=== PATIENT | female | born 1975 | race Caucasian/White ===

== ENCOUNTER 2021-11-04 10:18 | Outpatient (CLI) | payer OTHER, SELFPAY | END 2021-11-04 10:19 | disposition home or self-care (01) | LOC: NFLDREF 10:19 | PROVIDERS: Visit Provider Obstetrics & Gynecology | DX: Z01.419 Encounter for gynecological examination (general) (routine) without abnormal findings (principal); Z12.4 Encounter for screening for malignant neoplasm of cervix; Z11.3 Encounter for screening for infections with a predominantly sexual mode of transmission | CPT/HCPCS: 87624; 88175 ==

== ENCOUNTER 2022-01-30 07:06 | Outpatient (CLI) | payer OTHER, SELFPAY | END 2022-01-30 07:07 | disposition home or self-care (01) | LOC: OP CLINIC 07:07 | PROVIDERS: Visit Provider Surgery | DX: Z12.11 Encounter for screening for malignant neoplasm of colon (principal); K63.5 Polyp of colon; K57.30 Diverticulosis of large intestine without perforation or abscess without bleeding; Z83.71 Family history of colonic polyps | CPT/HCPCS: 45385; 88305; 99153; J2250; J3010 ==

== ENCOUNTER 2022-12-19 17:30 | Outpatient (CLI) | payer OTHER, SELFPAY | END 2022-12-19 17:31 | disposition home or self-care (01) | LOC: NFLDREF 17:31 | PROVIDERS: Visit Provider Registered Nurse | DX: Z01.419 Encounter for gynecological examination (general) (routine) without abnormal findings (principal); R63.5 Abnormal weight gain | CPT/HCPCS: 84443 ==

== ENCOUNTER 2023-04-13 15:00 | Outpatient (CLI) | payer BC, SELFPAY ==
--- NOTE | 2023-04-13 15:00 | MR_ITS ---
[facility] [address] [facility] [address] Phone:?[phone] Fax:?[phone] Referring Physician Information: Corey Bauman M.D. [address] [facility] [address] Phone:?[phone] Fax:?[phone] Patient:Taj De La Torre D.O.B:?1975 Sex:?Female Phone:?[phone] [facility] MRN:?[id number] Exam Date:?04/13/2023 EXAM: MR CERVICAL SPINE WITHOUT CONTRAST 1.5T CLINICAL INFORMATION: Cervical radiculopathy. TECHNICAL INFORMATION: T1, T2 FSE and STIR sagittal sections with T2 GRE/FSE axial sections at selected levels. COMPARISON IMAGES: MRI dated 11/06/2003. INTERPRETATION:?Neurologic structures:?Normal signal intensity within the cervical and upper thoracic cord. No Chiari malformation or syrinx, no intrinsic cord lesion and no intradural mass. Normal vertebral artery flow voids. Alignment:?Spondylosis with lordotic alignment of the cervical vertebrae. T1-2 and C7-T1: Normal intervertebral discs and facet joints. No stenosis or impingement. C6-7 and C5-6: Intervertebral discs unremarkable with normal dorsal disc margins, normal facet joints and no stenosis or impingement. C4-5: Mild disc degeneration a 1-2 mm left paracentral disc protrusion and mild left ventral cord flattening. Normal facet joints and patent neural foramina. C3-4 and C2-3: Intervertebral discs unremarkable with normal dorsal disc margins, mild facet arthropathy on the right at each level and no stenosis or impingement. Craniocervical junction:?No degenerative or erosive changes within the atlantoaxial or cervico-occipital joints. Osseous structures and paraspinous soft tissues:?Normal signal intensity with the vertebral marrow spaces. No fracture or avulsion. No osteolytic or destructive bone lesion. No prevertebral soft tissue swelling and no paraspinous soft tissue mass. CONCLUSION: 1. Mild C4-5 disc degeneration with a 1-2 mm left paracentral disc protrusion and mild left ventral cord flattening. 2. Mild facet arthropathy on the right at L3-4 and L2-3. 3. No cord abnormality, and no neoplasm, fracture or infection. 4. Comparison with 06/28/2007 shows that the disc protrusion on the left at C4-5 is new as is facet degeneration on the right at C3-4 and C2-3. Electronically signed on 04/14/2023 10:38:00 AM by Jeb Nicolas M.D.
--- OUTSIDE RECORDS SUMMARY | 2023-04-13 15:04 | XMS_ITS | Clinical Summary ---
Author Name Unknown Organization [facility] Address [place], [place] [address] Care Team Providers Care Director Of Brand Marketing Name Role Phone Gala Bowers NP Primary Care Provider [phone]- [phone] Allergies Active Allergy Reactions Criticality Noted Date Comments Cocamidopropyl Betaine Rash 02/27/2018 Red face Lactase Stomach Upset 02/27/2018 Intolerance Medications Medication Sig Dispensed Refills Start Date End Date Status dicloxacillin (DYNAPEN) 250 mg capsule Take 1 capsule by mouth 4 times daily before meals and at bedtime. 40 capsule 0 02/27/2018 Active medication order composer 0 02/27/2018 Active levonorgestrel intrauterine device (MIRENA) 20 mcg/24 hours (5 yrs) 52 mg IUD Inject 1 Device intrauterine one time for 1 dose. 1 Device 0 10/10/2019 Active cholecalciferol (VITAMIN D3) 2,000 unit capsule Take 1 capsule by mouth once daily. 0 10/10/2019 Active niacin 50 mg tablet Take 1 tablet by mouth once daily. 0 10/10/2019 Active zinc 50 mg tablet Take 1 Tablet (50 mg) by mouth once daily. 0 10/20/2021 Active magnesium sulfate in water 2 gram/50 mL (4 %) Inject 2 g intravenous. 0 10/20/2021 Active magnesium glycinate 100 mg magnesium cap Take by mouth. 0 Active Active Problems No known active problems Encounters Date Type Department Care Team Description 01/18/2023 2:00 PM CDT Telemedicine [facility] [address] [place] [address] Josie Blount, MS, [facility] [place]; Counseling (Cancer genetic counseling) 01/18/2023 Travel from Last 3 Months Family History Medical History Relation Name Comments Cancer-prostate Father Melanoma Father Cancer-breast Maternal Aunt Cancer-breast Mother Cancer-prostate Other Cancer-breast Paternal Aunt Cancer-colon No Family History Cancer-ovarian No Family History Cancer-pancreatic No Family History Relation Name Status Comments Father Maternal Aunt Mother Other Paternal Aunt Social History Tobacco Use Types Packs/Day Years Used Date Smoking Tobacco: Never Smokeless Tobacco: Never Alcohol Use Standard Drinks/Week Comments Yes 0 (1 standard drink = 0.6 oz pur e alcohol) social Social Connections Answer Date Recorded Frequency of Communication with Friends and Fami ly Not on file 04/01/2021 Financial Resource Strain Answer Date R ecorded Difficulty of Paying Living Expenses Not on file 04/01/2021 Difficulty of Paying Living Expenses Not on file 04/01/2021 Sex and Gender Information Value Date Recorded Sex Assigned at Not on file Gender Identity Not on file Sexual Orientation Not on file Obstetrics History Last Filed Vital Signs Vital Sign Reading Time Taken Comments Blood Pressure 126/76 10/20/2021 11:39 AM CDT Pulse 69 10/20/2022 10:23 AM CDT Temperature 36.2 ??C (97.2 ??F) 10/20/2022 10:23 AM C DT Respiratory Rate 16 10/20/2022 10:23 AM CDT Oxygen Saturation - - Inhaled Oxygen Concentration - - Weight 90.3 kg (199 lb) 10/20/2022 10:23 AM CDT Height 182.9 cm (6') 10/20/2022 10:23 AM CDT Body Mass Index 26.99 10/20/2022 10:23 AM CDT Plan of Treatment Upcoming Encounters Date Type Department Care Team (Late st Contact Info) Description 05/18/2023 1:00 PM 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 Ancillary Procedure [facility] [address] [place] [address] Health Maintenance Due Date Last Done Comments Tdap 02/21/1984 Depression screening for age 12+ 1985 HIV for age 15-65 02/21/1988 Hepatitis C screening for age 18-79 1991 Tetanus booster 1993 Colonoscopy through age 75 2018 Lipids for age 45-75 2018 COVID-19 vaccine series (2022- season) 2022 06/25/2020, 05/27/2020 Influenza for age 50-64 2023 Zoster (shingles) series for age 50+ (1 of 2) 2023 Mammogram for age 45-75 05/19/2023 05/19/19, 05/17/2021, 05/02/2021, Additional history exists BMI (ht and wt on same day) for age 18+ 10/21/2023 10/20/2022, 10/20/2021, 10/12/2020, Additional history exists Pap test for age 21-65 12/27/2024 , 11/04/2021, 11/09/2016, Additional history exists Pneumococcal series for age 6-64 Aged Out No longer eligible based on patient's age to complete this topic Care Teams Director Of Brand Marketing Relationship Specialty Start Date End Date Gala Bowers NP [address] [place] [address] PCP - General 01/17/23
== END 2023-04-13 15:01 | disposition home or self-care (01) ==
LOC: MRI 15:02
PROVIDERS: PCP Family Medicine; Visit Provider Family Medicine
DX: M54.12 Radiculopathy, cervical region (principal); M50.321 Other cervical disc degeneration at C4-C5 level; M50.221 Other cervical disc displacement at C4-C5 level
CPT/HCPCS: 72141

== ENCOUNTER 2023-05-29 16:13 | Outpatient (CLI) | payer BC, SELFPAY | END 2023-05-29 16:14 | disposition home or self-care (01) | LOC: NFLDREF 06-15 02:46 | PROVIDERS: PCP Family Medicine; Referring Provider Family Medicine; Visit Provider Family Medicine | DX: M54.2 Cervicalgia (principal); M54.50 Low back pain, unspecified | CPT/HCPCS: 86039; 86200; 86431; 86618 ==

== ENCOUNTER 2023-10-29 09:31 | Outpatient (CLI) | payer BC, SELFPAY ==
--- OUTSIDE RECORDS SUMMARY | 2023-10-29 09:36 | XMS_ITS | Clinical Summary ---
Author Organization [facility] Address [place], [place] [address] Care Team Providers Care Automated Manufacturing Instructor Name Role Phone Gala Bowers OLD TESTAMENT PROFESSOR Primary Care Provider [phone]- [phone] Allergies Active Allergy Reactions Criticality Noted Date Comments Cocamidopropyl Betaine Rash 02/27/2018 Red face Lactase Stomach Upset 02/27/2018 Intolerance Medications Medication Sig Dispensed Refills Start Date End Date Status medication order composer 0 02/27/2018 Active levonorgestrel intrauterine device (MIRENA) 20 mcg/24 hours (5 yrs) 52 mg IUD Inject 1 Device intrauterine one time for 1 dose. 1 Device 10/10/2019 Active cholecalciferol (VITAMIN D3) 2,000 unit capsule Take 1 capsule by mouth once daily. 0 10/10/2019 Active zinc 50 mg tablet Take 1 Tablet (50 mg) by mouth once daily. 0 10/20/2021 Active magnesium glycinate 100 mg magnesium cap Take by mouth. Active dicloxacillin (DYNAPEN) 250 mg capsule Take 1 capsule by mouth 4 times daily before meals and at bedtime. 40 capsule 02/27/2018 4 Discontinue d(*Med complete/Re gimen complete/Le aric of care change) niacin 50 mg tablet Take 1 tablet by mouth once daily. 0 10/10/2019 4 Discontinue d(*Patient states no longer taking) magnesium sulfate in water 2 gram/50 mL (4 %) Inject 2 g intravenous. 0 10/20/2021 4 Discontinue d(*Error/Or raulito entry error) Active Problems No known active problems Encounters Date Type Department Care Team Description 10/19/2023 Telephone [facility] [address] [facility] [address] [place] [address] Kendy Law RN Results (Screening breast MRI /) 10/19/2023 Lab Requisition [facility] [phone] Italia Vo NP 10/18/2023 11:30 AM CDT Office Visit [facility] [address] [facility] [address] [place] [address] Hattie King NP 10/18/2023 9:43 AM CDT - 10/18/2023 11:59 PM CDT Hospital Encounter [facility] [address] [place] [address] Hattie King NP Breast cancer screening, high risk patient 10/17/2023 Travel 08/10/2023 2:30 PM CDT - 08/10/2023 11:59 PM CDT Hospital Encounter [address] [address] Gabriele Culver MD Iverson, Ryan, PT 08/10/2023 Travel from Last 3 Months Family History Medical History Relation Name Comments Cancer-prostate Father Melanoma Father Cancer-breast Maternal Aunt Cancer Maternal Uncle Lung Cancer-breast Mother Cancer-prostate Other Cancer-breast Paternal Aunt Cancer-colon No Family History Cancer-ovarian No Family History Cancer-pancreatic No Family History Relation Name Status Comments Father Maternal Aunt Maternal Uncle Mother Other Paternal Aunt Social History Tobacco [...] on file Sexual Orientation Not on file Travel History Travel Start Travel End [place] 09/22/2023 09/29/2023 Obstetrics History Last Filed Vital Signs Vital Sign Reading Time Taken Comments Blood Pressure 155/82 10/18/2023 11:27 AM CDT Pulse 61 10/18/2023 11:27 AM CDT Temperature 35.8 ??C (96.4 ??F) 10/18/2023 11:27 AM C DT Respiratory Rate 18 10/18/2023 11:27 AM CDT Oxygen Saturation - - Inhaled Oxygen Concentration - - Weight 91.6 kg (202 lb) 10/18/2023 11:27 AM CDT Height 182.9 cm (6') 10/18/2023 11:27 AM CDT Body Mass Index 27.4 10/18/2023 11:27 AM CDT Plan of Treatment Health Maintenance Due Date Last Done Comments Tdap 02/21/1984 Depression screening for age 12+ 1985 HIV for age 15-65 02/21/1988 Hepatitis C screening for age 18-79 1991 Tetanus booster 1993 Colonoscopy through age 75 2018 Lipids for age 45-75 2018 COVID-19 vaccine series (2022- season) 2022 06/25/2020, 05/27/2020 Zoster (shingles) series for age 50+ (1 of 2) 2023 Influenza for age 50-64 12/02/2023 Mammogram for age 45-75 05/18/2024 05/18/19 24, 05/19/2022, 05/17/2021, Additional history exists BMI (ht and wt on same day) for age 18+ 10/17/2024 10/18/2023, 10/20/2022, 10/20/2021, Additional history exists Pap test for age 21-65 12/27/2024 , 11/04/2021, 11/09/2016, Additional history exists Pneumococcal series for age 6-64 Aged Out No longer eligible based on patient's age to complete this topic Procedures Procedure Name Priority Date/Time Associated Diagnosis Comments LAB TRACKING EVENT Routine 10/19/2023 10 :15 AM CDT PATH TISSUE EXAM Routine 10/19/2023 10:1 5 AM CDT MR BREAST CAD WWO BILATERAL Routine 10/18/2023 10:53 AM CDT Breast cancer screening, high risk patient XR MAMMO TERESITA BILAT SCREEN Routine 05/18/2023 1:14 PM SANDSTONE SPLITTER Routine adult health maintenance SIGN HANGER THIN PREP PAP SCREEN IMAGED Routine 12/27/2021 1:45 PM CDT from Last 3 Months or Most Recently Relevant to Health Maintenance Results * LAB TRACKING EVENT (10/19/2023 10:15 AM CDT) Other (Other) Client Collect / Unknown 10/19/2023 10:15 AM CDT 10/19/2023 2:30 PM CDT Italia Vo NP LAB BILL ONLY [facility] [address] [place] [address], * PATH TISSUE EXAM (10/19/2023 10:15 AM CDT) Case Report Pathology Report ?Case: [id number] ? Authorizing Provider: ??Italia Vo NP ?? Collected: ? 10/19/2023 1015 ? Ordering Location: ? [facility] ?Received: ?10/19/2023 1610 ? Pathologist: ? Franchesca Bailey MD ? Specimen: ?Endocervical Polyp ? 10/23/2023 11:24 AM [facility] Final Diagnosis A) ENDOCERVIX, POLYPECTOMY: 1. Benign endocervical polyp(s) with reactive changes 2. Negative for glandular neoplasia, squamous intraepithelial lesion and malignancy 10/23/2023 11:24 AM [facility] Clinical Information Cervical polyp 10/23/2023 11:24 AM [facility] Gross Description A) Received in formalin, labeled with the patient's name and endocervical polyp, are two 1.6 x 1.0 x 0.5 cm and 1.1 x 0.7 x 0.6 cm pink-pugh rubbery polyps. Apparent bases are differentially inked blue and green, and the polyps are sectioned. The specimen is entirely submitted in 2 cassettes. [facility] 10/19/2023 10/23/2023 11:24 AM [facility] Microscopic Description The final diagnosis is based on microscopic examination of appropriate sections of all specimens. A p16 immunostain was performed on part A (utilizing destained section A1-2) to assist in evaluation. The p16 immunostain is negative for diffuse expression. The histologic findings are consistent with reactive changes. 10/23/2023 11:24 AM [facility] Additional Information Interpreted at [facility] - [address], [place] [address] Immunohistochemist ry controls were reviewed and approved by the pathologist during this examination. 10/23/2023 11:24 AM CDT [facility] Other (Endocervical Polyp) 10/19/2023 10:15 AM CDT 10/19/2023 4:10 PM CDT Italia Vo NP PATHOLOGY/CYTOLOG Y [facility] [address] [place] [address], [place] * MR BREAST CAD WWO BILATERAL (10/18/2023 10:53 AM CDT) Anatomical Region Laterality Modality BREASTS, Breast Left, Breast Right Bilateral Magnetic Resonance 10/18/2023 3:54 PM CDT Narrative 10/19/2023 3:30 PM CDT For Patients: As a result of the Cures Act, medical imaging exams and procedure reports are released immediately into your electronic medical record. ??You may view this report before your referring provider. ?? If you have questions, please contact your health care provider. BILATERAL BREAST MRI WITHOUT AND WITH GADOLINIUM, 10/18/2023 CLINICAL HISTORY: Strong family history breast cancer. Dense breasts on mammography. INDICATION FOR BREAST MRI: Screening in this high risk woman. COMPARISON STUDIES: BILATERAL mammogram 05/18/2023, breast MRI October 20, 2022 and October 20, 2021. CONTRAST: 15 mL Gadavist. TECHNIQUE: The patient was positioned prone using a breast coil. Multiple imaging sequences were obtained using 1-1.5 mm thick slices with no gap. The image sequences include T2-weighted STIR in the axial plane, T1-weighted nonfat-saturated gradient echo in the axial plane, pre- and post-contrast T1-weighted FLASH 3D with fat suppression in the axial plane, and T1-weighted FLASH high resolution 3D with fat suppression in the sagittal plane. Image post-processing was performed on a [employer] workstation. Complex 3D rendering including maximum intensity projections (MIPS) and volumetric renderings were obtained to optimize visualization of the extent of pathology and relationship to the nipple, skin, and chest wall. This aids in determining feasibility of breast conservation surgery. Subtraction, multiplanar reconstruction, mean curve determination, and angiogenesis mapping were also performed. The study was technically adequate. FINDINGS: Amount of Fibroglandular Tissue: Heterogeneous. Breast Background Enhancement: Moderate. RIGHT Breast: No suspicious mass or non mass enhancement. Benign cyst in the axillary tail. LEFT Breast: No suspicious mass non mass enhancement. Lymph Nodes: No suspicious lymph nodes. IMPRESSIONS AND RECOMMENDATIONS: Negative for signs of malignancy. Follow-up with annual screening mammography. If continuing breast MRI this is best offset from the mammogram by 6 months. BI-RADS Category 2: Benign Dictated by: Sheree Max MD @10/18/2023 3:54:32 PM/brian Hattie King OLD TESTAMENT PROFESSOR MR * XR MAMMO TERESITA BILAT SCREEN (05/18/2023 1:14 PM SANDSTONE SPLITTER) Anatomical Region Laterality Modality BREASTS, Breast Left, Breast Right Bilateral Mammography Impressions 05/18/2023 11:06 PM SANDSTONE SPLITTER ??There is no radiographic evidence for malignancy. ??Recommend annual mammograms. MAMMOGRAM ASSESSMENT: ??ACR 1 Negative PATIENTS: You will also receive a letter with your examination results in an easy to read format. ??If you have questions about your results, please contact your referring provider. Narrative 05/18/2023 11:06 PM SANDSTONE SPLITTER For Patients: As a result of the Century Cures Act, medical imaging exams and procedure reports are released immediately into your electronic medical record. You may view this report before your referring provider. If you have questions, please contact your health care provider. XR MAMMO TERESITA BILAT SCREEN [[id number]] CLINICAL HISTORY: ??This is an asymptomatic 48 y.o. patient. INDICATION FOR EXAM: Mammogram Screening. TECHNIQUE: CC & MLO views were obtained. ??This study was evaluated with the assistance of Computer-Aided Detection. Breast Tomosynthesis was used in interpretation. COMPARISON FILM: Yes 05/19/22 [facility] 05/02/20 [facility] FINDINGS: ??The breasts are heterogeneously dense, which may obscure small masses. There are no dominant masses, suspicious micro calcifications or areas of architectural distortion. Gala Bowers OLD TESTAMENT PROFESSOR MAMMO * SIGN HANGER THIN PREP PAP SCREEN IMAGED (12/27/2021 1:45 PM CDT) Case Report Gynecologic Cytology Report ? Case: [id number] ? Authorizing Provider: ??Shahida Adam PA-C ?Collected: ? 12/27/2021 1345 ? Ordering Location: ? [facility] ?Received: ?12/29/2021 1026 ? First Screen: ?Hilda Otoole ? Specimen: ?SIGN HANGER ThinPrep Vial Screening, Cervical ? 01/17/2022 8:05 AM CDT [facility] INTERPRETATION/ RESULT NEGATIVE FOR INTRAEPITHELIAL LESION OR MALIGNANCY (NIL) (none) 01/17/2022 8:05 AM CDT [facility] [employer] [facility]AT[facility] IMEN ADEQUACY Satisfactory for evaluation Endocervical component present 01/17/2022 8:05 AM CDT [facility] [employer] HPV REQUEST HPV not requested 2021 8:05 AM CDT [facility] Last Pap Date 11/04/2021 01/17/2022 8:05 AM CDT [facility] Last Pap Result UNS 10/18/202 2 8:05 AM CDT [facility]ORATORY Abnormal Pap or [place] Bx in last 5 years No 01/17/2022 8:05 AM CDT [facility] [place] Bx Done Today No 01/17/2022 8:05 AM CDT [facility] Additional Information 01/17/2022 8:05 AM T [facility] Comment: Interpreted at [facility] - [address], [place] [address] Automated Review Successful 01/17/2022 8:05 AM CDT [facility] Comment:Specimen processed s uccessfully by automated tugger operator device, [employer] Imaging System, [employer] Note The pap test is a screening technique, not a diagnostic procedure. It is used primarily to screen for squamous cancers and precursor lesions. Published studies have shown that it is subject to both false negative and false positive results. The pap test should not be used as the sole means to diagnose or exclude pre-malignant and malignant lesions. 01/17/2022 8:05 AM CDT [facility] Other (Cervical) 12/27/2021 1:45 PM CDT 12/29/2021 10:26 AM CDT July Jair [facility] PATHOLOGY/CYTOLOGY [facility] [address] [place] [address], from Last 3 Months or Most Recently Relevant to Health Maintenance Care Teams Automated Manufacturing Instructor Relationship Specialty Start Date End Date Gala Bowers NP [facility] [address] [place] [address] PCP - General 01/17/23
== END 2023-10-29 09:32 | disposition home or self-care (01) ==
PROVIDERS: PCP Nurse Practitioner Family; Visit Provider Nurse Practitioner Family
DX: Z13.0 Encounter for screening for diseases of the blood and blood-forming organs and certain disorders involving the immune mechanism (principal); Z82.49 Family history of ischemic heart disease and other diseases of the circulatory system
CPT/HCPCS: 80053; 80061; 83695; 85025

== ENCOUNTER 2023-11-05 08:13 | Outpatient (CLI) | payer BC, SELFPAY ==
--- OUTSIDE RECORDS SUMMARY | 2023-11-05 13:09 | XMS_ITS | Clinical Summary ---
Author Organization [facility] Address [place], [place] [address] Care Team Providers Care Bagging Machine Operator Name Role Phone Gala Bowers RN [facility] Primary Care Provider +1- [phone] Allergies Active Allergy Reactions Criticality Noted Date [...] Type Department Care Team Description 10/19/2023 Telephone [facility] [address] [facility] [address] [place] [address] Kendy Law RN Results (Screening breast MRI /) 10/19/2023 Lab Requisition [facility] [phone] Italia Vo NP 10/18/2023 11:30 AM CDT Office Visit [facility] [address] [facility] [address] [place] [address] Hattie King NP 10/18/2023 9:43 AM CDT - 10/18/2023 11:59 PM CDT Hospital Encounter [facility] [address] [place] [address] Hattie King NP Breast cancer screening, high risk patient 10/17/2023 Travel 08/10/2023 2:30 PM CDT - 08/10/2023 11:59 PM CDT Hospital Encounter [address] [address] Gabriele Culver MD Iverson, Ryan, PT 08/10/2023 [...] for age 45-75 2018 COVID-19 vaccine series ( season) 2022 06/25/2020, 05/27/2020 Zoster (shingles) series [...] TERESITA BILAT SCREEN Routine 05/18/2023 1:14 PM BIOCHEMISTRY PROFESSOR Routine adult health maintenance ACID REGENERATOR THIN PREP PAP SCREEN IMAGED Routine 12/27/2021 1:45 PM CDT from Last 3 Months or Most Recently Relevant to Health Maintenance Results * LAB TRACKING EVENT (10/19/2023 10:15 AM CDT) Other (Other) Client Collect / Unknown 10/19/2023 10:15 AM CDT 10/19/2023 2:30 PM CDT Italia Vo NP LAB BILL ONLY [facility] [address] [place] [address], * PATH TISSUE EXAM (10/19/2023 10:15 AM CDT) Case Report Pathology Report ?Case: [id number] ? Authorizing Provider: ??Italia Vo NP ?? Collected: ? 10/19/2023 1015 ? Ordering Location: ? [facility] ?Received: ?10/19/2023 1610 ? Pathologist: ? Franchesca Bailey MD ? Specimen: ?Endocervical Polyp ? 10/23/2023 11:24 AM [facility] Final Diagnosis A) ENDOCERVIX, POLYPECTOMY: 1. Benign endocervical polyp(s) with reactive changes 2. Negative for glandular neoplasia, squamous intraepithelial lesion and malignancy 10/23/2023 11:24 AM [facility] Clinical Information Cervical polyp 10/23/2023 11:24 AM [facility] Gross Description A) Received in formalin, labeled with the patient's name and endocervical polyp, are two 1.6 x 1.0 x 0.5 cm and 1.1 x 0.7 x 0.6 cm pink-pugh rubbery polyps. Apparent bases are differentially inked blue and green, and the polyps are sectioned. The specimen is entirely submitted in 2 cassettes. [facility] 10/19/2023 10/23/2023 11:24 AM [facility] Microscopic Description The final diagnosis is based on microscopic examination of appropriate sections of all specimens. A p16 immunostain was performed on part A (utilizing destained section A1-2) to assist in evaluation. The p16 immunostain is negative for diffuse expression. The histologic findings are consistent with reactive changes. 10/23/2023 11:24 AM [facility] Additional Information Interpreted at [facility] [facility] - [address], [place] [address] Immunohistochemist ry controls were reviewed and approved by the pathologist during this examination. 10/23/2023 11:24 AM [facility] Other (Endocervical Polyp) 10/19/2023 10:15 AM CDT 10/19/2023 4:10 PM CDT Italia Vo NP PATHOLOGY/CYTOLOG Y [facility] [address] [place] [address], [place] * MR BREAST CAD WWO BILATERAL [...] plane. Image post-processing was performed on a INNOBI workstation. Complex 3D rendering including maximum intensity [...] Max MD @10/18/2023 3:54:32 PM/brian Hattie King RN [facility] MR * XR MAMMO TERESITA BILAT SCREEN (05/18/2023 1:14 PM BIOCHEMISTRY PROFESSOR) Anatomical Region Laterality Modality BREASTS, Breast Left, Breast Right Bilateral Mammography Impressions 05/18/2023 11:06 PM BIOCHEMISTRY PROFESSOR ??There is no radiographic evidence for malignancy. ??Recommend annual mammograms. MAMMOGRAM ASSESSMENT: ??ACR 1 Negative PATIENTS: You will also receive a letter with your examination results in an easy to read format. ??If you have questions about your results, please contact your referring provider. Narrative 05/18/2023 11:06 PM BIOCHEMISTRY PROFESSOR For Patients: As a result of the Century Cures Act, medical imaging exams and procedure reports are released immediately into your electronic medical record. You may view this report before your referring provider. If you have questions, please contact your health care provider. XR MAMMO TERESITA BILAT SCREEN [[id number]] CLINICAL HISTORY: ??This is an asymptomatic 48 [...] or areas of architectural distortion. Gala Bowers NP MAMMO * ACID REGENERATOR THIN PREP PAP SCREEN IMAGED (12/27/2021 1:45 PM CDT) Case Report Gynecologic Cytology Report ? Case: [id number] ? Authorizing Provider: ??Shahida Adam PA-C ?Collected: ? 12/27/2021 1345 ? Ordering Location: ? [facility] ?Received: ?12/29/2021 1026 ? First Screen: ?Hilda Otoole ? Specimen: ?ACID REGENERATOR ThinPrep Vial Screening, Cervical ? 01/17/2022 8:05 AM CDT [facility] INTERPRETATION/ RESULT NEGATIVE FOR INTRAEPITHELIAL LESION OR MALIGNANCY (NIL) (none) 01/17/2022 8:05 AM CDT [facility] IMEN ADEQUACY Satisfactory for evaluation Endocervical component present 01/17/2022 8:05 AM CDT [facility] HPV REQUEST HPV not requested 2021 8:05 AM CDT [facility] Last Pap Date 11/04/2021 01/17/2022 8:05 AM CDT [facility] Last Pap Result UNS 8:05 AM CDT [facility] Abnormal Pap or [place] Bx in last 5 years No 01/17/2022 8:05 AM CDT [facility] [place] Bx Done Today No 01/17/2022 8:05 AM CDT [facility] Additional Information 01/17/2022 8:05 AM CDT [facility] Comment: Interpreted at [facility] - [address], [place] [address] Automated Review Successful 01/17/2022 8:05 AM CDT [facility] Comment:Specimen processed s uccessfully by automated manager digital device, ThinPrep Imaging System, [employer] Note The pap test is a [...] and malignant lesions. 01/17/2022 8:05 AM CDT [facility] Other (Cervical) 12/27/2021 1:45 PM CDT 12/29/2021 10:26 AM CDT Shahida Adam PA-C PATHOLOGY/CYTOLOGY [facility] [address] [place] [address], from Last 3 Months or Most Recently Relevant to Health Maintenance Care Teams Bagging Machine Operator Relationship Specialty Start Date End Date Gala Bowers NP [facility] [address] [place] [address] [facility] - General 01/17/23
== END 2023-11-05 08:14 | disposition home or self-care (01) ==
LOC: NFLDREF 13:06
PROVIDERS: PCP Nurse Practitioner Family; Referring Provider Nurse Practitioner Family; Visit Provider Nurse Practitioner Family
DX: Z13.228 Encounter for screening for other metabolic disorders (principal); Z13.6 Encounter for screening for cardiovascular disorders
CPT/HCPCS: 80053; 80061

== ENCOUNTER 2023-12-10 08:35 | Outpatient (CLI) | payer BC, SELFPAY ==
--- OUTSIDE RECORDS SUMMARY | 2023-12-10 08:37 | XMS_ITS | Clinical Summary ---
Author Organization [facility] Address [place], [place] [address] Care Team Providers Care Arc Air Operator Name Role Phone Gala Bowers CLINICAL INSTRUCTOR Primary Care Provider +1- [phone] Allergies Active Allergy Reactions Criticality Noted Date [...] mg magnesium cap Take by mouth. Active Active Problems No known active problems Encounters Date Type Department Care Team Description 10/19/2023 Telephone [facility] [address] [place] [id number] Kendy Law, RN Results (Screening breast MRI /) 10/19/2023 Lab Requisition [facility] [phone] Italia Vo NP 10/18/2023 11:30 AM CDT Office Visit [facility] [address] [place] [address] Hattie King NP 10/18/2023 9:43 AM CDT - 10/18/2023 11:59 PM CDT Hospital Encounter [facility] [address] [place] [address] Hattie King NP Breast cancer screening, high risk patient 10/17/2023 Travel from Last 3 Months Family History [...] 75 2018 Lipids for age 45-75 2018 Zoster (shingles) series for age 50+ (1 of 2) 2023 COVID-19 vaccine series (3 - 2022-24 season) 2023 06/25/2020, 05/27/2020 Influenza for age 50-64 12/02/2023 Mammogram for [...] TERESITA BILAT SCREEN Routine 05/18/2023 1:14 PM DATA ENTRY TECHNICIAN Routine adult health maintenance TARRING MACHINE OPERATOR THIN PREP PAP SCREEN IMAGED Routine 12/27/2021 1:45 PM CDT from Last 3 Months or Most Recently Relevant to Health Maintenance Results * LAB TRACKING EVENT (10/19/2023 10:15 AM CDT) Other (Other) Client Collect / Unknown 10/19/2023 10:15 AM CDT 10/19/2023 2:30 PM CDT Italia N Gilda CLINICAL INSTRUCTOR LAB BILL ONLY [facility] [address] [place] [address], * PATH TISSUE EXAM (10/19/2023 10:15 AM CDT) Case Report Pathology Report ?Case: [id number] ? Authorizing Provider: ??Italia Vo, GIOVANI ?? Collected: ? 10/19/2023 1015 ? Ordering Location: ? [facility] ?Received: ?10/19/2023 1610 ? Pathologist: ? Franchesca Bailey MD ? Specimen: ?Endocervical Polyp ? 10/23/2023 11:24 AM CDT [facility] Final Diagnosis A) ENDOCERVIX, POLYPECTOMY: 1. Benign endocervical polyp(s) with reactive changes 2. Negative for glandular neoplasia, squamous intraepithelial lesion and malignancy 10/23/2023 11:24 AM CDT [facility] Clinical Information Cervical polyp 10/23/2023 11:24 AM CDT [facility] Gross Description A) Received in formalin, labeled with the patient's name and endocervical polyp, are two 1.6 x 1.0 x 0.5 cm and 1.1 x 0.7 x 0.6 cm pink-pugh rubbery polyps. Apparent bases are differentially inked blue and green, and the polyps are sectioned. The specimen is entirely submitted in 2 cassettes. [facility] 10/19/2023 10/23/2023 11:24 AM CDT [facility] Microscopic Description The final diagnosis is based on microscopic examination of appropriate sections of all specimens. A p16 immunostain was performed on part A (utilizing destained section A1-2) to assist in evaluation. The p16 immunostain is negative for diffuse expression. The histologic findings are consistent with reactive changes. 10/23/2023 11:24 AM CDT [facility] Additional Information Interpreted at [facility] - [address] [place] [id number] Immunohistochemist ry controls were reviewed and approved by the pathologist during this examination. 10/23/2023 11:24 AM CDT [facility] Other (Endocervical Polyp) 10/19/2023 10:15 AM CDT 10/19/2023 4:10 PM CDT Italia Vo NP PATHOLOGY/CYTOLOG Y Performing Organization Address City/State/[facility] Co de Phone Number [facility] [address] [place] [address], * MR BREAST CAD WWO BILATERAL (10/18/2023 [...] plane. Image post-processing was performed on a [id number] workstation. Complex 3D rendering including maximum intensity [...] Max MD @10/18/2023 3:54:32 PM/brian Hattie King NP MR * XR MAMMO TERESITA BILAT SCREEN (05/18/2023 1:14 PM DATA ENTRY TECHNICIAN) Anatomical Region Laterality Modality BREASTS, Breast Left, Breast Right Bilateral Mammography Impressions 05/18/2023 11:06 PM DATA ENTRY TECHNICIAN ??There is no radiographic evidence for malignancy. ??Recommend annual mammograms. MAMMOGRAM ASSESSMENT: ??ACR 1 Negative PATIENTS: You will also receive a letter with your examination results in an easy to read format. ??If you have questions about your results, please contact your referring provider. Narrative 05/18/2023 11:06 PM DATA ENTRY TECHNICIAN For Patients: As a result of the Century Cures Act, medical imaging exams and procedure reports are released immediately into your electronic medical record. You may view this report before your referring provider. If you have questions, please contact your health care provider. XR MAMMO TERESITA BILAT SCREEN [[id number]] CLINICAL HISTORY: ??This is an asymptomatic 48 y.o. patient. INDICATION FOR EXAM: Mammogram Screening. TECHNIQUE: CC & MLO views were obtained. ??This study was evaluated with the assistance of Computer-Aided Detection. Breast Tomosynthesis was used in interpretation. COMPARISON FILM: Yes 05/19/22 Mofang 05/02/20 Mofang FINDINGS: ??The breasts are heterogeneously dense, which may obscure small masses. There are no dominant masses, suspicious micro calcifications or areas of architectural distortion. Gala Bowers NP MAMMO * TARRING MACHINE OPERATOR THIN PREP PAP SCREEN IMAGED (12/27/2021 1:45 PM CDT) Case Report Gynecologic Cytology Report ? Case: [id number] ? Authorizing Provider: ??Shahida Adam PA-C ?Collected: ? 12/27/2021 1345 ? Ordering Location: ? [facility] ?Received: ?12/29/2021 1026 ? First Screen: ?Hilda Otoole ? Specimen: ?TARRING MACHINE OPERATOR ThinPrep Vial Screening, Cervical ? 01/17/2022 8:05 AM CDT [facility] INTERPRETATION/ RESULT NEGATIVE FOR INTRAEPITHELIAL LESION OR MALIGNANCY (NIL) (none) 01/17/2022 8:05 AM CDT [facility] IMEN ADEQUACY Satisfactory for evaluation Endocervical component present 01/17/2022 8:05 AM CDT [facility] HPV REQUEST HPV not requested 2021 8:05 AM CDT [facility] Last Pap Date 11/04/2021 01/17/2022 8:05 AM CDT [facility] Last Pap Result UNS 8:05 AM CDT [facility] Abnormal Pap or [place] Bx in last 5 years No 01/17/2022 8:05 AM T [facility] [place] Bx Done Today No 01/17/2022 8:05 AM T [facility] Additional Information 01/17/2022 8:05 AM T [facility] Comment: Interpreted at [facility] - [address], [place] [address] Automated Review Successful 01/17/2022 8:05 AM T [facility] Comment:Specimen processed s uccessfully by automated computer security specialist device, ThinPrep Imaging System, [employer] Note The pap test is a [...] and malignant lesions. 01/17/2022 8:05 AM CDT [facility] Other (Cervical) 12/27/2021 1:45 PM CDT 12/29/2021 10:26 AM CDT July Jair AMBROCIO PATHOLOGY/CYTOLOGY [facility] [address] [place] [address], from Last 3 Months or Most Recently Relevant to Health Maintenance Care Teams Arc Air Operator Relationship Specialty Start Date End Date Gala Bowers NP [facility] [address] [place] [address] PCP - General 01/17/23
--- NOTE | 2023-12-10 08:45 | CRLHL7_ITS ---
For Patients: As a result of the Cures Act, medical imaging exams and procedure reports are released immediately into your electronic medical record. You may view this report before your referring provider. If you have questions, please contact your health care provider. BILATERAL DIAGNOSTIC MAMMOGRAM WITH COMPUTER-AIDED DETECTION AND TOMOSYNTHESIS RIGHT BREAST ULTRASOUND CLINICAL HISTORY: RIGHT breast lump. COMPARISON: MRI 10/18/2023, mammogram 05/18/2023, 05/19/2022, 04/05/2018. TECHNIQUE: Digital BILATERAL mammogram in four projections with computer-aided detection. Tomosynthesis was used in this interpretation. Real-time ultrasound imaging of RIGHT breast with imaging documentation. BREAST COMPOSITION: The breasts are heterogeneously dense, which may obscure small masses. FINDINGS: 3D CC/MLO BILATERAL mammogram images submitted. Nodular density within the upper-outer quadrant RIGHT breast noted without architectural distortion corresponding to a T2 hyperintense structure on MRI. No suspicious calcifications. Targeted RIGHT breast ultrasound performed at 10 o`clock 10 cm from the nipple. In this location, there is a simple anechoic cyst with increased through transmission measuring 3.0 x 1.9 x 2.0 cm. Additional cyst is present measuring 1.6 x 1.4 x 1.1 cm. IMPRESSION: Benign cysts upper-outer quadrant RIGHT breast 10 o`clock 10 cm from the nipple measuring up to 3 cm. No suspicious findings. No evidence of malignancy. RECOMMENDATIONS: Routine screening mammography. BI-RADS Category 2: Benign Results and recommendations discussed with the patient. A lay language report of this examination will be provided to the patient. Dictated by Bashir Cifuentes MD @ 12/10/2023 9:52:50 AM /sp/philip SP/Dictated by: Bashir Cifuentes MD @ 12/10/2023 9:53:00 AM (Electronically Signed)
--- NOTE | 2023-12-10 09:15 | CRLHL7_ITS ---
For Patients: As a result of the Century Cures Act, medical imaging exams and procedure reports are released immediately into your electronic medical record. You may view this report before your referring provider. If you have questions, please contact your health care provider. PLEASE SEE BILATERAL BREAST DIAGNOSTIC MAMMOGRAM PERFORMED SAME DAY. CRL:rodney/philip SP/Dictated by: Bashir Cifuentes MD @ 12/10/2023 9:57:00 AM (Electronically Signed)
== END 2023-12-10 08:36 | disposition home or self-care (01) ==
LOC: MAMMO 08:36
PROVIDERS: PCP Nurse Practitioner Family; Visit Provider Registered Nurse
DX: N63.10 Unspecified lump in the right breast, unspecified quadrant (principal); N60.01 Solitary cyst of right breast
CPT/HCPCS: 76642; 77066; G0279

== ENCOUNTER 2024-12-16 16:35 | Outpatient (CLI) | payer BC, SELFPAY | END 2024-12-16 16:36 | disposition home or self-care (01) | PROVIDERS: PCP Nurse Practitioner Family; Visit Provider Registered Nurse | DX: N92.6 Irregular menstruation, unspecified (principal) | CPT/HCPCS: 84443; 84703 ==